=== PATIENT | female | born 1980 | race Caucasian/White ===

== ENCOUNTER 2018-09-10 09:05 | Emergency (ER) | payer OTHER ==
[~2018-09-10] VITALS: Ht 167.6 cm; Wt 63.5 kg
[2018-09-10 09:18] VITALS: BP 121/87
--- NOTE | 2018-09-10 09:18 | PHYS DOC ---
Adult General Chief Complaint Chief Complaint: CHEST PAIN HPI HPI Patient is a 37-year-old female who presents with complaint of left sided anterior chest wall discomfort. Patient states that a few days ago her son had come up behind her and given her a bear hug from behind, lifting her off the ground. She states that she felt something pop in her chest at that time and has had significant pain ever since. She states the pain is worsened with breathing and movement. She describes pain as sharp and stabbing. She denies any shortness of breath. She denies any cough or fever. Review of Systems Review of Systems Constitutional: Denies fever or chills [] Respiratory: Denies cough or shortness of breath [] Cardiovascular: No additional information not addressed in HPI [] GI: Denies abdominal pain, nausea, vomiting or diarrhea [] Musculoskeletal: Denies back pain or joint pain [] Physical Exam Physical Exam Constitutional: Well developed, well nourished, no acute distress, non-toxic appearance. [] Cardiovascular:Heart rate regular rhythm, no murmur [] Lungs & Thorax: Bilateral breath sounds clear to auscultation [] Skin: Warm, dry, no erythema, no rash. [] Back: No tenderness, no CVA tenderness. [] EKG EKG [] Radiology/Procedures Radiology/Procedures [] Impressions: Left rib series x-rays was reviewed and demonstrates no acute bony abnormalities. Course & Med Decision Making Course & Med Decision Making Pertinent Labs and Imaging studies reviewed. (See chart for details) [] Dragon Disclaimer Dragon Disclaimer This electronic medical record was generated, in whole or in part, using a voice recognition dictation system. Departure Departure: Impression: Primary Impression: Costochondritis Disposition: 01 HOME, SELF-CARE Condition: STABLE Referrals: PCP,NO (PCP) Patient Instructions: Costochondritis Scripts Methylprednisolone (MEDROL) 4 Mg Tab.ds.pk 1 PKG PO UD for inflammation, #1 PKG Prov: LAUREN BOND Jr. DO 09/10/18 Diclofenac Sodium (DICLOFENAC SODIUM) 50 Mg Tablet.dr 1 TAB PO BID PRN for PAIN, #20 TAB Prov: LAUREN BOND Jr. DO 09/10/18 Tramadol Hcl (TRAMADOL HCL) 50 Mg Tablet 50 MG PO PRN Q6HRS PRN for PAIN, #12 TAB Prov: LAUREN BOND Jr. DO 09/10/18 LAUREN BOND Jr., DO September 10, 2018 09:18
[2018-09-10] MEDS ORDERED: TRAM50TA PO (09:45)
[2018-09-10] MEDS ORDERED: METH4TAB2 PO (09:45)
[2018-09-10] MEDS ORDERED: DICL50TA4 PO (09:45)
--- NOTE | 2018-09-10 09:46 | RAD ---
Single view chest and left-sided rib study dated 09/10/2018. No comparison available. Clinical indication: Pain. FINDINGS: Single AP view of the chest shows normal heart and mediastinal contours. Lungs are somewhat hyperinflated but otherwise clear. No consolidation or pleural effusion. No pneumothorax. Dedicated views of left-sided ribs show no evidence of displaced left rib fracture. No acute bony abnormality. IMPRESSION: No acute echographic abnormality. No evidence of displaced left rib fracture. Electronically signed by: Mehrdad Moctezuma MD (09/10/2018 9:43 AM) [facility]
== END 2018-09-10 09:50 | disposition home or self-care (01) ==
LOC: ER 09:05
DX: M94.0 Chondrocostal junction syndrome [Tietze] (principal)
CPT/HCPCS: 71101; 99284

== ENCOUNTER 2020-03-31 13:15 | Inpatient (IN) | payer SELFPAY ==
[~2020-03-31] VITALS: Ht 170.2 cm; Wt 92.0 kg
[~2020-03-31 13:15] MED LIST: DICL50TA4 PO; METH4TAB2 PO; TRAM50TA PO
[2020-03-31] MEDS ORDERED: IPRATRPIUM/ALBUTEROL 0.5/2.5MG 3 ML NEBU. NEB ONE (13:45)
[2020-03-31] MEDS ORDERED: methylPREDNISolone SOD SUCC PF 125 MG/2 ML VIAL. IV ONE (13:45)
[2020-03-31] MEDS ORDERED: 0.9 % SODIUM CHLORIDE 10 ML DISP.SYRIN. IV PRN (13:45)
[2020-03-31 14:08] LABS: BASO % 0 % (0-3); EOS % 0 % (0-3); HEMATOCRIT 42.9 % (36.0-47.0); LYMPH # 1.1 x10^3/uL (1.0-4.8); LYMPH % 8 % (24-48); MEAN CORPUSCULAR HEMOGLOBIN 29 pg (25-35); MEAN CORPUSCULAR HGB CONC 33 g/dL (31-37); MEAN CORPUSCULAR VOLUME 90 fL (79-100); MONO # 0.1 x10^3/uL (0.0-1.1); MONO % 1 % (0-9); NEUT # 13.1 x10^3uL (1.8-7.7); NEUT % 92 % (31-73); PLATELET COUNT 258 x10^3/uL (140-400); RED BLOOD COUNT 4.78 x10^6/uL (3.50-5.40); RED CELL DISTRIBUTION WIDTH 12.9 % (11.5-14.5); WHITE BLOOD COUNT 14.2 x10^3/uL (4.0-11.0)
[2020-03-31 14:14] LABS: CALCIUM 9.4 mg/dL (8.5-10.1); CREATININE 1.2 mg/dL (0.6-1.0); GFR 50.6
--- NOTE | 2020-03-31 14:18 | PHYS DOC ---
Past History Past Medical History: Asthma Additional Past Medical Histor: irregular heartbeat (LUIS THAKKAR APRN) Past Surgical History: Tubal ligation (LUIS THAKKAR SCRAP IRON CUTTER) Alcohol Use: None Drug Use: None (LUIS THAKKAR APRN) Date and Time of Assessment Date: Mar 31, 2020 Time: 15:30 (LUIS THAKKAR APRN) Vital Signs Vital Signs Vital Signs Date Time Temp Pulse Resp B/P (MAP) Pulse Ox O2 Delivery O2 Flow Rate FiO2 03/31/20 15:15 75 20 121/66 (84) 97 03/31/20 13:51 Room Air 03/31/20 13:15 98.7 (LUIS THAKKAR SCRAP IRON CUTTER) Respirations Respiratory Effort: Normal Respiratory Pattern: Normal (LUIS THAKKAR SCRAP IRON CUTTER) Cardiovascular Pulse Rhythm: Regular HEART: Nml rate, reg. rhythm (LUIS THAKKAR SCRAP IRON CUTTER) Lung Sounds Breath Sounds: Clear (LUIS THAKKAR SCRAP IRON CUTTER) Capillary Refill Capillary Refill: Rt Hand > 3 seconds (LUIS THAKKAR SCRAP IRON CUTTER) Peripheral Pulse Pulse Location: Monitor Pulse Strength: Normal (2+) Pulse Assessment Method: NIBP (LUIS THAKKAR APRN) Integumentary Skin: Warm Skin Moisture: Moist Skin Turgor: Normal Skin Color: warm Fingernail Color: WNL (LUIS THAKKAR APRN) Adult General Chief Complaint Chief Complaint: SHORTNESS OF BREATH HPI HPI Patient is a 39-year-old female patient presenting to the ED today complaining of asthma symptoms since May 2019. Patient states her symptoms include shortness of breath, wheezing, coughing. He states he has been following up with multiple providers including her PCP as well as director of global marketing. She states she saw the director of global marketing yesterday who increased her prednisone from 10 mg to 20 mg daily. Patient reports a fever yesterday when she was seen at the doctor's office. She states she has been tested for COVID-19 multiple times with negative results. She states she has also had antibody testing which were negative. Denies any fever today. Denies any chest pain today. She states he had a breathing treatment prior to arrival to the ED. (LUIS THAKKAR SCRAP IRON CUTTER) Review of Systems Review of Systems Constitutional: Denies fever or chills [] Eyes: Denies change in visual acuity, redness, or eye pain [] HENT: Denies nasal congestion or sore throat [] Respiratory: Reports cough, shortness of breath, wheezing Cardiovascular: No additional information not addressed in HPI [] GI: Denies abdominal pain, nausea, vomiting, bloody stools or diarrhea [] : Denies dysuria or hematuria [] Musculoskeletal: Denies back pain or joint pain [] Integument: Denies rash or skin lesions [] Neurologic: Denies headache, focal weakness or sensory changes [] All other systems were reviewed and found to be within normal limits, except as documented in this note. (LUIS THAKKAR APRN) Current Medications Current Medications Current Medications Medications (Trade) Dose Ordered Sig/Nichole Start Time Stop Time Status Last Admin Dose Admin Albuterol/ Ipratropium (Duoneb) 3 ml 1X ONCE 03/31/20 13:45 03/31/20 13:46 DC 03/31/20 13:51 3 ML Methylprednisolone Sodium Succinate (SOLU-Medrol 125MG VIAL) 125 mg 1X ONCE 03/31/20 13:45 03/31/20 13:46 DC 03/31/20 14:05 125 MG Sodium Chloride (Normal Saline Flush) 10 ml QSHIFT PRN 03/31/20 13:45 03/31/20 14:06 10 ML (LUIS THAKKAR APRN) Allergies Allergies Allergies Coded Allergies Type Severity Reaction Last Updated Verified Penicillins Allergy Unknown 03/31/20 Yes (LUIS THAKKAR APRN) Physical Exam Physical Exam Constitutional: Well developed, well nourished, no acute distress, non-toxic appearance. [] HENT: Normocephalic, atraumatic, bilateral external ears normal, oropharynx moist, no oral exudates, nose normal. [] Eyes: PERRLA, EOMI, conjunctiva normal, no discharge. [] Neck: Normal range of motion, no tenderness, supple, no stridor. [] Cardiovascular:Heart rate regular rhythm, no murmur [] Lungs & Thorax: Slightly tight chest Abdomen: Bowel sounds normal, soft, no tenderness, no masses, no pulsatile masses. [] Skin: Warm, dry, no erythema, no rash. [] Back: No tenderness, no CVA tenderness. [] Extremities: No tenderness, no cyanosis, no clubbing, ROM intact, no edema. [] Neurologic: Alert and oriented X 3, normal motor function, normal sensory function, no focal deficits noted. [] Psychologic: Affect normal, judgement normal, mood normal. [] (LUIS THAKKAR APRN) Current Patient Data Vital Signs Vital Signs Date Time Temp Pulse Resp B/P (MAP) Pulse Ox O2 Delivery O2 Flow Rate FiO2 03/31/20 13:51 98 Room Air 03/31/20 13:15 98.7 103 32 136/79 (98) Lab Results Laboratory Tests Test 03/31/20 13:30 White Blood Count 14.2 x10^3/uL (4.0-11.0) H Red Blood Count 4.78 x10^6/uL (3.50-5.40) Hemoglobin 14.0 g/dL (12.0-15.5) Hematocrit 42.9 % (36.0-47.0) Mean Corpuscular Volume 90 fL (79-100) Mean Corpuscular Hemoglobin 29 pg (25-35) Mean Corpuscular Hemoglobin Concent 33 g/dL (31-37) Red Cell Distribution Width 12.9 % (11.5-14.5) Platelet Count 258 x10^3/uL (140-400) Neutrophils (%) (Auto) 92 % (31-73) H Lymphocytes (%) (Auto) 8 % (24-48) L Monocytes (%) (Auto) 1 % (0-9) Eosinophils (%) (Auto) 0 % (0-3) Basophils (%) (Auto) 0 % (0-3) Neutrophils # (Auto) 13.1 x10^3uL (1.8-7.7) H Lymphocytes # (Auto) 1.1 x10^3/uL (1.0-4.8) Monocytes # (Auto) 0.1 x10^3/uL (0.0-1.1) Eosinophils # (Auto) 0.0 x10^3/uL (0.0-0.7) Basophils # (Auto) 0.0 x10^3/uL (0.0-0.2) (LUIS THAKKAR APRN) EKG EKG [address] Braga sinus rhythm, QT474, prolonged QT interval, no STEMI[] (LUIS THAKKAR APRN) Radiology/Procedures Radiology/Procedures []PROCEDURE: PORTABLE CHEST 1V EXAM: PORTABLE CHEST 1V INDICATION: Reason: SOA / Spl. Instructions: / History: . TECHNIQUE: Single view COMPARISON: Chest x-ray 09/10/2018 FINDINGS: The heart size is normal. The great vessels appear unremarkable. There is no hilar or mediastinal mass. The lungs are lower in volume but otherwise clear. There is no pleural effusion or pneumothorax. There are no significant osseous abnormalities. IMPRESSION: Mild hypoventilatory changes but otherwise no active cardiopulmonary disease. Electronically signed by: Marlene Christie MD (03/31/2020 2:16 PM) [id number] DICTATED AND SIGNED BY: MARLENE CHRISTIE MD DATE: 03/31/20 1416 CC: OTF BRAGA DO; LUIS THAKKAR APRN; PCP,NO ~MTH0 0 PROCEDURE: CT ANGIOGRAPHY CHEST EXAM: CT ANGIOGRAPHY OF THE CHEST WITH AND WITHOUT CONTRAST. HISTORY: Shortness of breath. TECHNIQUE: Computed tomographic angiography of the chest was performed before and after the intravenous administration of iodinated contrast. 3-D maximum intensity projections were also performed. One or more of the following individualized dose reduction techniques were utilized for this examination: 1. Automated exposure control. 2. Adjustment of the mA and/or kV according to patient size. 3. Use of iterative reconstruction technique. COMPARISON: None. FINDINGS: Images of the upper abdomen reveal no acute abnormality. Bone windows reveal no suspicious lesions. No pulmonary emboli are identified. There is no aortic dissection or aneurysm. There are no pathologically enlarged mediastinal or axillary lymph nodes. There is no pleural or pericardial effusion. The heart is not enlarged. Lung windows reveal no infiltrates. There is minimal dependent atelectasis. IMPRESSION: 1. No pulmonary embolism. No infiltrates. Electronically signed by: Per Matias MD (03/31/2020 3:25 PM) [id number] DICTATED AND SIGNED BY: SHADE MATIAS MD DATE: 03/31/20 1525 CC: OTF BRAGA DO; LUIS THAKKAR APRN; PCP,NO ~MTH0 0 (LUIS THAKKAR APRN) Heart Score Risk Factors: Risk Factors: DM, Current or recent (<one month) smoker, HTN, HLP, family history of CAD, obesity. Risk Scores: Risk Factors: DM, Current or recent (<one month) smoker, HTN, HLP, family history of CAD, obesity. (LUIS THAKKAR APRN) Course & Med Decision Making Course & Med Decision Making Pertinent Labs and Imaging studies reviewed. (See chart for details) This is a 39-year-old female patient with history of asthma presenting today complaining of cough, shortness of breath, wheezing, symptoms have been going on since May 2019. Been seen by her PCP and director of global marketing. She was seen yesterday by the director of global marketing who increased her prednisone from 10 to 20 mg daily. She reports multiple tests including multiple COVID-19 test and antibody screens which were negative Vitals on arrival to the ED temperature 98.7, heart rate 103, respiration 32 on room air, O2 sats 98%, blood pressure 136/79. Patient had received a breathing treatment prior to coming to the ED. After couple minutes in the ED her respir ations went down 20 in RA. CBC with a WBC of 14.3, CMP with glucose of 170, anion gap of 21, patient denies any history of diabetes. Lactic 4.6. Chest x-ray interpreted by radiologist was negative for any acute findings, CTA chest was negative for any acute findings. She was started on 2 L of IV fluids as well as Levaquin. I do not have a source for her lactic acidosis. Will continue fluids. Spoke with Dr. De La Rosa who accepted patient for admission. (LUIS THAKKAR APRN) Course & Med Decision Making I have reviewed the PET SUPPLIES SALESPERSON's note and plan of care. I was available for consultation, saw patient, and agree for need to admit. I agree with the clinical impression, plan, and disposition. (OTF BRAGA DO) Dragon Disclaimer Dragon Disclaimer This electronic medical record was generated, in whole or in part, using a voice recognition dictation system. (LUIS THAKKAR APRN) Departure Departure: Impression: Primary Impression: Asthma exacerbation Additional Impressions: Lactic acidosis Shortness of breath Person under investigation for COVID-19 Disposition: ADMITTED INPT THIS HOSP Admitting Physician: Fermín De La Rosa (OTF BRAGA DO) Condition: STABLE Referrals: PCP,NO (PCP) Problem Qualifiers Primary Impression: Asthma exacerbation Asthma severity: mild Asthma persistence: intermittent Qualified Codes: J45.21 - Mild intermittent asthma with (acute) exacerbation LUIS THAKKAR APRN Mar 31, 2020 14:18 OTF BRAGA DO Mar 31, 2020 16:41
[2020-03-31 14:30] LABS: ALBUMIN 3.6 g/dL (3.4-5.0); ALBUMIN/GLOBULIN RATIO 1.1 (1.0-1.7); MAGNESIUM 1.9 mg/dL (1.8-2.4); TOTAL BILIRUBIN 0.3 mg/dL (0.2-1.0)
[2020-03-31 14:36] LABS: INFLUENZA A PATIENT NEGATIVE (NEGATIVE); INFLUENZA B PATIENT NEGATIVE (NEGATIVE)
[2020-03-31] MEDS ORDERED: IV NORMAL SALINE 1,000ML 1,000 ML IV ONE ×2 (14:45)
[2020-03-31] MEDS ORDERED: IOHEXOL 350 MG/ML 100 ML VIAL. IV ONE (14:45)
[2020-03-31] MEDS ORDERED: CONTRAST GIVEN. MC PRN (14:45)
--- NOTE | 2020-03-31 15:29 | RAD ---
EXAM: CT ANGIOGRAPHY OF THE CHEST WITH AND WITHOUT CONTRAST. HISTORY: Shortness of breath. TECHNIQUE: Computed tomographic angiography of the chest was performed before and after the intravenous administration of iodinated contrast. 3-D maximum intensity projections were also performed. One or more of the following individualized dose reduction techniques were utilized for this examination: 1. Automated exposure control. 2. Adjustment of the mA and/or kV according to patient size. 3. Use of iterative reconstruction technique. COMPARISON: None. FINDINGS: Images of the upper abdomen reveal no acute abnormality. Bone windows reveal no suspicious lesions. No pulmonary emboli are identified. There is no aortic dissection or aneurysm. There are no pathologically enlarged mediastinal or axillary lymph nodes. There is no pleural or pericardial effusion. The heart is not enlarged. Lung windows reveal no infiltrates. There is minimal dependent atelectasis. IMPRESSION: 1. No pulmonary embolism. No infiltrates. Electronically signed by: Per Matias MD (03/31/2020 3:25 PM) [id number]
--- NOTE | 2020-03-31 16:00 | EKG ---
[address] [address] Test Date: 2020-03-31 Test Time: 13:26:26 Pat Name: ELIU PLUNKETT Department: Room: Gender: F Information Resource Consultant: MADAI : 1980 Requested By: LUIS THAKKAR Order Number: [id number] Reading MD: Measurements Intervals [place] Rate: 97 P: 36 DC: 122 QRS: 18 QRSD: 74 T: 31 QT: 370 QTc: 474 Interpretive Statements SINUS RHYTHM PROLONGED QT NO SPECIFIC ECG ABNORMALITIES RI6.02 No previous ECG available for comparison
[2020-03-31] MEDS ORDERED: ONDANSETRON PF 4 MG/2 ML VIAL. IVP PRN (16:15)
[2020-03-31] MEDS ORDERED: MORPHINE SULFATE 2 MG/ML DISP.SYRIN. IVP PRN (16:15)
[2020-03-31] MEDS ORDERED: ACETAMINOPHEN 325 MG TABLET PO PRN (16:15)
[2020-03-31] MEDS ORDERED: NAPROXEN 500 MG TABLET PO ONE (16:15)
[2020-03-31 17:59] LABS: BILIRUBIN,URINE NEG (NEG); CLARITY,URINE CLOUDY; COLOR,URINE YELLOW; GLUCOSE,URINE NEG (NEG)
[2020-03-31 18:00] LABS: BACTERIA,URINE FEW /HPF (0-FEW); NITRITE,URINE NEG (NEG); SQUAMOUS EPITHELIAL CELL,UR MANY /LPF; UROBILINOGEN,URINE 0.2 mg/dL (0.2 mg/dL)
[2020-03-31] MEDS: IV NORMAL SALINE 1,000ML 1,000 ML IV SCH ×2 (18:19→19:41)
--- NOTE | 2020-03-31 19:30 | NUR ---
ADMISSION: The patient, ELIU PLUNKETT, 39 y/o, F admitted by KAILEY COLMENARES MD, was given written information regarding hospital policies, unit procedures and contact persons. Pt arrived to room 123 via gurney, accompanied by [facility] and ED RN. Dx: SOA, asthma, lactic acidosis. Pt c/o asthma sx since May of this year, follows with a patrol judge through [facility] in [place], [place]. Pt was seen by her patrol judge yesterday and her prednisone was increased from 10mg to 20mg daily. Pt reports recent contact with COVID positive coworkers. Also reports low grade fever yesterday, and head/muscle aches today. Pt swabbed for COVID-19 while in ED, placed in contact and airborne precautions pending result. VSS. Discussed POC, pt V/U. Call light in reach. Valuables were checked and logged. Left in room with pt.
[2020-03-31] MEDS ORDERED: IPRATRPIUM/ALBUTEROL 0.5/2.5MG 3 ML NEBU. NEB SCH (20:00)
[2020-03-31] MEDS ORDERED: TRAZ150T49 PO (20:15)
[2020-03-31] MEDS ORDERED: BUDE10.2 PO (20:15)
[2020-03-31] MEDS ORDERED: ALBU2.5V8 IH (20:15)
[2020-03-31] MEDS ORDERED: PRED-220 PO (20:15)
[2020-03-31] MEDS ORDERED: UMEC62.5 IH (20:15)
[2020-03-31] MEDS ORDERED: ONDA4TAB12 PO (20:15)
[2020-03-31] MEDS ORDERED: PROC5TAB2 PO (20:15)
[2020-03-31] MEDS ORDERED: PROCHLORPERAZINE 5 MG TABLET. PO PRN (20:15)
[2020-03-31] MEDS ORDERED: ALPR0.5T6 PO (20:15)
[2020-03-31 20:26] VITALS: BP 119/62
--- NOTE | 2020-03-31 20:31 | NUR ---
DR. COLMENARES NOTIFIED OF PT ARRIVAL AND STATUS. HOME MEDS RECONCILED.
[2020-03-31] MEDS ORDERED: traZODone 150 MG TABLET. PO SCH (21:00)
[2020-03-31] MEDS ORDERED: NON FORMULARY ITEM (Budesonide/Formoterol Fumarate (Symbicort 160-4.5 Mcg Inhaler) 2 PUFF) PO SCH (21:00)
[2020-03-31] MEDS: IPRATROPIUM/ALBUTEROL 20/100mcg/INH INHALER. INH SCH (21:40)
[2020-03-31] MEDS: ALPRAZolam 0.5 MG TABLET PO SCH (21:40)
[2020-03-31 22:47] VITALS: BP 110/62
[2020-04-01] MEDS: IPRATROPIUM/ALBUTEROL 20/100mcg/INH INHALER. INH SCH ×2 (05:34→12:00)
[2020-04-01 05:37] VITALS: BP 100/53
[2020-04-01] MEDS: methylPREDNISolone SOD SUCC PF 40 MG/ML VIAL. IV SCH ×2 (06:00→11:03)
[2020-04-01 06:04] LABS: BASO # 0.1 x10^3/uL (0.0-0.2); BASO % 1 % (0-3); EOS % 0 % (0-3); HEMATOCRIT 35.9 % (36.0-47.0); HEMOGLOBIN 11.8 g/dL (12.0-15.5); LYMPH # 1.9 x10^3/uL (1.0-4.8); LYMPH % 15 % (24-48); MEAN CORPUSCULAR HEMOGLOBIN 30 pg (25-35); MEAN CORPUSCULAR HGB CONC 33 g/dL (31-37); MEAN CORPUSCULAR VOLUME 90 fL (79-100); MONO # 0.6 x10^3/uL (0.0-1.1); MONO % 5 % (0-9); NEUT # 10.1 x10^3uL (1.8-7.7); NEUT % 80 % (31-73); PLATELET COUNT 202 x10^3/uL (140-400); RED BLOOD COUNT 3.97 x10^6/uL (3.50-5.40); RED CELL DISTRIBUTION WIDTH 12.9 % (11.5-14.5); WHITE BLOOD COUNT 12.6 x10^3/uL (4.0-11.0)
[2020-04-01 06:22] LABS: CALCIUM 8.1 mg/dL (8.5-10.1); GFR 62.4; POTASSIUM 3.8 mmol/L (3.5-5.1)
[2020-04-01] MEDS: ALPRAZolam 0.5 MG TABLET PO SCH (08:40)
[2020-04-01] MEDS ORDERED: FLUTICASONE FUROATE 200mcg/INH ELLIPTA INHALER. INH SCH (09:00)
[2020-04-01] MEDS ORDERED: LACTOBACILLUS RHAMNOSUS GG 1 CAPSULE. PO SCH (09:00)
--- NOTE | 2020-04-01 11:00 | NUR ---
NURSING NOTE: THIS RN OVERHEARD PT SCREAMING AT ANOTHER RN. THIS RN WALKED INTO THE ROOM TO HELP CALM THE SITUATION. PT WAS UPSET OVER NOT GETTING A NEBULIZER AND NOT RECEIVING ANY PREDNISONE. SHE STATED SHE COULD NOT BREATHE. PT WAS OBSERVED BREATHING QUICKLY. THIS RN INSTRUCTED THE PT TO TAKE DEEP LONG BREATHS AND THEN HELPED THE PT TO USE HER RESCUE INHALER WITH CHAMBER. PT BEGAN TO BREATHE EASIER AND SLOWER AT THIS POINT. THIS RN EXPLAINED TO THE PT THAT WE COULD NOT HAVE HER SCREAMING AT THE STAFF. THIS RN EDUCATED THE PT ON THE FACT THAT WE CANNOT USE NEBULIZERS SINCE SHE IS PENDING A COVID RESULT. PT VERBALIZED UNDERSTANDING. PT ADVISED THAT THE RN WOULD CALL THE MD AND TRY TO GET SOME STEROIDS FOR HER. AFTER CHART REVIEW THE PATIENT IS ON SOLUMEDROL. PER PHONE CALL WITH DR. COLMENARES SOLUMEDROL WAS GIVEN EARLY. PT RESTING IN ROOM. WILL CONTINUE TO MONITOR. OLGA PERDUE
[2020-04-01] MEDS ORDERED: ONDANSETRON ODT 4 MG TAB.RAPDIS PO PRN (13:15)
[2020-04-01] MEDS ORDERED: ALBUTEROL SULFATE 2.5 MG/3 ML NEBU. IH PRN (13:15)
[2020-04-01] MEDS ORDERED: predniSONE 20 MG TABLET PO SCH (13:30)
[2020-04-01] MEDS ORDERED: ALBUTEROL SULFATE 8GM INHALER. INH PRN (13:30)
[2020-04-01 14:26] VITALS: BP 113/63
[2020-04-01] MEDS: IV NORMAL SALINE 1,000ML 1,000 ML IV SCH (15:07)
[2020-04-01 16:02] LABS: BGAS PH 7.41 (7.35-7.45)
--- NOTE | 2020-04-01 16:50 | HP ---
ADMIT DATE: HISTORY OF PRESENT ILLNESS: The patient is a 39-year-old female patient who came to the Emergency Room complaining of shortness of breath. She apparently has been complaining of bronchial asthma symptoms since 05/2019. Her symptoms include shortness of breath, wheezing, coughing. She has been following up with multiple providers including her primary care physician at [facility] and her curing room worker, Dr. Bowles at [facility] in [place]. He actually saw her 2 days ago and increased her prednisone from 10 mg to 20 mg. She reported that she has fever, the day before admission when she was at the doctor's office. She also has been tested for COVID-19 multiple times with negative results. She even has had antibody testing, which was negative. When she arrived to the Emergency Room, she has no fever. Denied any chest pain. She stated that she has had breathing treatment prior to arrival to the Emergency Room. She was extensively investigated and had lab work as well as imaging studies. Her EKG showed that she was in sinus rhythm with prolonged QT interval, no ST segment elevation. Her chest x-ray showed mild hypoventilatory changes, but otherwise no active cardiopulmonary disease and she had had a CT angio of the chest and it did show that there is no pulmonary embolism and no infiltrate. The patient was admitted with asthma exacerbation. She does have also lactic acidosis and she was also swabbed for COVID-19 again. Her lactic acid initially was 4.6 that came down to 3.1. She was treated with IV Solu-Medrol, IV levofloxacin and she was continued on her home medication. PAST MEDICAL HISTORY: Significant for bronchial asthma since she was a third grader, apparently has never been admitted before except this year, twice. She has also persistent nausea and vomiting for the last 4 weeks, which she started on Zofran and Compazine by her primary care physician, although no further investigation done or reason was found for her persistent intractable nausea and vomiting. PAST SURGICAL HISTORY: Significant for tubal ligation. ALLERGIES: SHE IS ALLERGIC TO PENICILLIN. MEDICATIONS: She is currently on following medications: She is on Incruse Ellipta 1 puff once a day, albuterol sulfate for ProAir 2 puffs every 4 hours as needed, trazodone 150 mg at bedtime, alprazolam 0.5 mg twice a day. She is on Symbicort 160/4.5 two puffs twice a day, prochlorperazine 5 mg 3 times a day as needed for nausea and vomiting, ondansetron 4 mg every 8 hours as needed for nausea and vomiting. She was on prednisone 20 mg daily. FAMILY HISTORY: She has one brother, younger and healthy. One sister has seasonal allergies. Her father is still alive and has hypertension and hyperlipidemia. Mother is still alive and has bronchial asthma, diabetes and hyperlipidemia as well as hypertension. SOCIAL HISTORY: She lives with her fiance. She has 1 daughter and 2 sons. She quit smoking about 14 years ago. Does not drink alcohol or use any recreational drugs. PHYSICAL EXAMINATION: GENERAL: When she arrived to the Emergency Room, she was slightly tachypneic, and mildly tachycardic, but there was no pallor, jaundice, cyanosis or thyromegaly. No jugular venous distention. No lower limb edema. VITAL SIGNS: Her heart rate on arrival was 103, blood pressure was 136/79, temperature was 98.7, respiratory rate was 32 and oxygen saturation was 98%. HEAD, EYES, EARS, NOSE AND THROAT: Showed normocephalic, atraumatic. NECK: Supple. HEART: Showed normal first and second heart sounds. No gallop, rub or murmur. CHEST: Shows central trachea, described as slightly tight chest, but no wheezing or crepitation. ABDOMEN: Soft, nontender. NEUROLOGIC: She was awake, alert, and oriented x 3 with normal motor function, normal sensory function, no focal deficit. PSYCHOLOGIC: According to ER physician, her affect, judgment and mood were normal. EXTREMITIES: Showed no clubbing, cyanosis or edema. LABORATORY DATA: Her lab work on arrival showed a white cell count of 14,200, hemoglobin 14, hematocrit 42.9, MCV 90 and platelet count 258,000 with manual differential showed 92% polymorphs and 8% lymphocytes. Her chemistry showed a serum sodium of 139, potassium 4, chloride 104, carbon dioxide was 14, anion gap of 21, BUN of 15, creatinine 1.2, estimated GFR was 50 mL per minute. Her glucose 170, calcium was 9.4, magnesium was 1.9. Total bilirubin, AST, ALT, alkaline phosphatase were normal. Total protein was 7, albumin was 3.6. Urinalysis showed the urine was yellow, cloudy with a pH of 6, specific gravity of 1.010. Urine was negative for protein and glucose. There was trace of ketones, trace of blood, negative for nitrite, negative for bilirubin. There was moderate amount of leukocyte esterase, 1-2 rbc's, 11-20 wbc's, and very few bacteria. Her influenza A and B were negative. Her chest x-ray showed the patient heart size is normal. The great vessels appear unremarkable. There is no hilar or mediastinal mass. The lungs are lower in volume, but otherwise clear. There is no pleural effusion or pneumothorax. There are no significant osseous abnormalities. She has mild hypoventilatory changes, but otherwise no active cardiopulmonary disease. She did have a ____ the upper abdomen revealed no acute abnormality. Bone windows reveal no suspicious lesion. No pulmonary emboli identified. There is no aortic dissection or aneurysm. There are no pathologically enlarged mediastinal or axillary lymph nodes. There is no pleural or pericardial effusion. The heart is not enlarged. Lung windows reveal no infiltrate. There is minimal dependent atelectasis. ASSESSMENT AND PLAN: The patient was admitted with asthma exacerbation. She has also acute high anion gap metabolic acidosis. Her lactic acid was high at 4.6. Her anion gap was 21 and with a normal range of 6-14. We did repeat her lactic acid again, it was 3.1. She was continued on all her medications and we will monitor her response and if necessary, we will continue with her inhalers. We will monitor her closely and decide on further management according to her response. KAILEY COLMENARES MD DR: DARRIN/tab JOB#: [id number] / [id number]
[2020-04-01] MEDS ORDERED: LEVO500T8 PO (17:25)
--- NOTE | 2020-04-01 17:49 | NUR ---
PATIENT IS DISCHARGED HOME, DISCHARGE INSTRUCTION REVIEWED, PATIENT VERBALIZED UNDERSTANDING. PATIENT LEFT ROOM 123 VIA AMB. ACCOMPANIED BY SELF. PATIENT TAKEN HOME BY [place] VIA PERSONAL VEHICLE.
--- NOTE | 2020-04-01 23:33 | DS ---
DATE OF DISCHARGE: 04/01/2020 HOSPITAL COURSE: The patient was admitted through the Emergency Room complaining of shortness of breath and bronchial asthma since 05/2019 and when she arrived to the Emergency Room, her vital signs initially were slightly elevated; however, she has been if anything in sinus bradycardia. Her blood pressure was good. She was afebrile. Her oxygen saturation was throughout her stay about 97%. Her white cell count was slightly elevated at 14,200; however, she is on steroids. Her chemistry showed a lactic acidosis of 4.6 that is steadily coming down to 3.1 and this afternoon was 2.8. I did actually blood gases this afternoon, which showed a pH of 7.41, her pCO2 was 25, pO2 was 78, bicarbonate was 16, and oxygen saturation was 96% on FiO2 of 21%. Her urinalysis showed that she has 11-20 wbc's, and very few bacteria. Her influenza A and B were negative. Her COVID-19 by PCR was still pending at the time of this dictation. I did actually literature research as to why she has lactic acidosis given that she was not hypotensive. She is not on metformin to cause type A or B lactic acidosis and literature research showed that the anxiety with respiratory alkalosis can cause this excessive use of beta agonist can cause this pheochromocytoma can cause this. She obviously anxious and she is hyperventilating. I sat down with her and explained all these findings to her. I obviously offered to consult our psychiatrist to come assist with her anxiety. However, the patient has elected to go home to continue with her medications and to follow with her primary care physician in [place] and also her mobile security architect at [facility] in [place]. PHYSICAL EXAMINATION: GENERAL: This afternoon when she decided to go home, she was sitting comfortably in her bed, in no apparent distress. She was actually in good spirits, smiling. She was not tachypneic. There was no pallor, jaundice, cyanosis or thyromegaly. No jugular venous distention or limb edema. VITAL SIGNS: Her heart rate was 53, blood pressure was 113/63, temperature was 98.8, respiratory rate 20, and oxygen saturation was 96%. HEAD, EYES, EARS, NOSE AND THROAT: Showed normocephalic, atraumatic. NECK: Supple. HEART: Showed normal first and second heart sounds. No gallop or murmur. CHEST: Clear to auscultation. No crepitation or rhonchi. ABDOMEN: Distended, soft, nontender. NEUROLOGIC: She was grossly intact. LABORATORY WORK: Her lab work today showed her white cell count was 12,600, hemoglobin 11.8, hematocrit was 36, MCV 90 and platelet count 302,000. Her chemistry this afternoon showed a serum sodium 142, potassium 3.8, chloride 110, bicarbonate 18, anion gap of 14. Her BUN was 11, creatinine 1, estimated GFR was 62 mL per minute. Her glucose 108, calcium was 8.1. Her lactic acid this afternoon was 2.8. Her urinalysis showed leukocyturia and moderate amount of leukocyte esterase, was negative for nitrite. her blood gas this afternoon showed a pH of 7.41, pCO2 of 25, pO2 of 78, bicarbonate 16, and oxygen saturation was 96% on room air. Her chest x-ray was unremarkable and CT angio of the chest showed no evidence of pulmonary embolism or infiltrate. DISCHARGE MEDICATIONS: The patient was discharged home to continue on her albuterol sulfate 2 puffs every 4 hours, alprazolam 0.5 mg twice a day, Symbicort 160/4.5 two puffs twice a day, ondansetron ODT 4 mg every 8 hours, prednisone 20 mg daily, Compazine 5 mg 3 times a day and trazodone 150 mg at bedtime as well as Incruse Ellipta 62.5 mcg 1 puff once a day. FINAL DISCHARGE DIAGNOSES: Bronchial asthma, severe anxiety with marked hyperventilation and lactic acidosis that has improved. THE PATIENT IS ALLERGIC TO PENICILLIN. I will discharge her on cefdinir 300 mg twice a day to make sure that she had urinary tract infection treated, although we do not have any urine or blood culture available. KAILEY COLMENARES MD DR: DARRIN/tab JOB#: [id number] / [id number]
--- NOTE | 2020-04-02 11:01 | PN ---
DATE: 04/01/2020 SUBJECTIVE: The patient is resting, slightly propped up in bed. She was admitted yesterday with asthma exacerbation. She was also found to have high anion gap acidosis. Her lactic acid was slightly elevated at 4.6, within normal range of 0.4-2, without any obvious explanation. Extensive lab work and imaging studies were all unremarkable and was admitted, was continued on her medication. When I saw her this afternoon, she was continued to complain of shortness of breath in the face of clear lungs with no inspiratory or expiratory wheezing. No crackles or rhonchi. Her oxygen saturation was 99% on room air. The patient was insisting that if she knew that there was no instrument panel assembler here, she would not have been admitted and would like to be transferred to [facility]. I did speak with the instrument panel assembler clinic and apparently, Dr. Bowles was out of town. Dr. Markham was the instrument panel assembler on-call, and apparently, when I spoke to him, they had no beds available. I explained to the patient that we do not have any pulmonologists here and that my plan is to do stat blood gases, and if it shows any abnormality, I will attempt to transfer her to [facility]; however, if her blood gases are within normal range, she probably has to stay here and continue treatment as is. OBJECTIVE: VITAL SIGNS: When I examined her this afternoon, she was definitely anxious and hyperventilating; however, her heart rate was only 54, blood pressure was 100/53, temperature was 97.9, respiratory rate was 20, and oxygen saturation was 96, in fact was 99% on room air when I examined her. HEAD, EYES, EASE, AND THROAT: Showed normocephalic, atraumatic. NECK: Supple. HEART: Showed normal first and second heart sounds. No gallop or murmur. CHEST: Clear to auscultation. No crepitation or rhonchi. ABDOMEN: Distended, soft, nontender. NEUROLOGIC: She was awake, alert, responding appropriately. All cranial nerves intact. She moves extremities without difficulty. LABORATORY DATA: Showed a white cell count 12,800, hemoglobin 11.8, hematocrit 35.9, MCV 90 and platelet count 202,000 with normal manual differential. Her chemistry showed a serum sodium 142, potassium 3.8, chloride 110, bicarbonate 18, anion gap of 14, BUN 11, creatinine 1, estimated GFR was 62 mL per minute. Her glucose 108, calcium was 8.1. Her influenza A and B were negative. Urinalysis showed that she has a moderate amount of leukocyte esterase, 1-2 rbc's, 11-20 wbc's, and no bacteria. PLAN: My plan is to continue with her current medications including Solu-Medrol 40 mg IV every 8 hours. Continue with levofloxacin 750 mg daily. Continue with all her other medications including her Combivent, ondansetron and Compazine. I will repeat her blood gases and lactic acid, and we will decide on further management accordingly. KAILEY COLMENARES MD DR: DARRIN/tab JOB#: [id number] / [id number]
--- NOTE | 2020-04-04 10:22 | NUR ---
IP: attempt to notify patient of COVID result, wrong number in record. Will send letter.
== END 2020-04-01 17:45 | disposition home or self-care (01) | DRG 202 ==
LOC: ER 13:15 → 1 SOUTH 15:47
PROVIDERS: ADMIT Internal Medicine; ATTEND Internal Medicine
DX: J45.901 Unspecified asthma with (acute) exacerbation (principal); E87.2 Acidosis; F41.9 Anxiety disorder, unspecified; Z20.828 Contact with and (suspected) exposure to other viral communicable diseases; Z82.49 Family history of ischemic heart disease and other diseases of the circulatory system; Z82.5 Family history of asthma and other chronic lower respiratory diseases; Z83.3 Family history of diabetes mellitus; Z87.891 Personal history of nicotine dependence; Z88.0 Allergy status to penicillin; Z98.51 Tubal ligation status
CPT/HCPCS: 36415; 36600; 71045; 71275; 80048; 80053; 81001; 82553; 82803; 83605; 83735; 84484; 85025; 87040; 87086; 87804; 93005; 94640; 96365; 96375; J1956; J2920; J2930; J7512; J7613; Q9967; U0003; 99285-25; J7030